=== PATIENT | female | born 1950 ===

== ENCOUNTER 2020-01-12 06:00 | Outpatient (RCR) | payer MEDICARE, SELFPAY | END 2020-02-09 23:59 | disposition home or self-care (01) | LOC: MPT 06:00 | PROVIDERS: PCP Orthopaedic Surgery; Referring Provider Orthopaedic Surgery; Visit Provider Orthopaedic Surgery | DX: M16.11 Unilateral primary osteoarthritis, right hip (principal); Z96.641 Presence of right artificial hip joint | CPT/HCPCS: 97110; 97116; 97140; 97161; 97530 ==